=== PATIENT | female | born 1945 | race Caucasian/White ===

== ENCOUNTER 2017-03-06 08:11 | Emergency (ER) | payer MEDICARE, OTHER ==
[~2017-03-06] VITALS: Ht 167.6 cm; Wt 88.0 kg
[2017-03-06 08:16] VITALS: Ht 167.6 cm; Wt 88.0 kg
--- NOTE | 2017-03-06 08:56 | ERD ---
ER Documentation Chief Complaint Date/Time DATE: 03/06/17 TIME: 08:56 Chief Complaint NECK AND SHOULDER PAIN "SHOOTING TO THE HEART" SINCE YESTERDAY HPI Patient is a 71-year-old female who presents with gradual onset, constant, severe bilateral posterior shoulder and neck pain for 1 day. She states that started when she awoke yesterday. She denies any fall or trauma. She denies any weakness or numbness of the arms. She denies any anterior neck pain. She states that the pain radiates to her bilateral ears. She denies hearing loss, tinnitus, vertigo. She denies chest pain, back pain, fever, vomiting. She states that she has been compliant with her medication for diabetes and hypertension. She denies headache, visual disturbance. She denies weakness or numbness of the arms. ROS All systems reviewed and are negative except as per history of present illness. Medications Home Meds Active Scripts Carbamide Peroxide* (Debrox*) 6.5% - 15 Ml Drops, 10 DROP BOTH EARS BID for 3 Days, BOTTLE Prov:TALIA KNOX MD 03/06/17 Cyclobenzaprine Hcl* (Cyclobenzaprine Hcl*) 10 Mg Tablet, 10 MG PO TID, #21 TAB Prov:TALIA KNOX MD 03/06/17 Hydrocodone/Acetaminophen ([place] 10-325 Tablet) 1 Each Tablet, 1 TAB PO Q6H Y for PAIN, #14 TAB Prov:TALIA KNOX MD 03/06/17 Reported Medications Gabapentin* (Gabapentin*) 300 Mg Capsule, 300 MG PO DAILY, #60 CAP 03/06/17 Ibuprofen* (Motrin*) 600 Mg Tab, 600 MG PO Q6H Y for PAIN, TAB 03/06/17 Insulin Glargine* (Lantus*) 100 Unit/Ml Soln, 30 UNIT SC QHS, #1 VIAL 03/06/17 Zolpidem Tartrate* (Zolpidem Tartrate*) 10 Mg Tablet, 10 MG PO QHS Y for INSOMNIA, #30 TAB 03/06/17 Sertraline Hcl* (Zoloft*) 25 Mg Tablet, 25 MG PO DAILY, #30 TAB 03/06/17 Atenolol* (Atenolol*) 25 Mg Tablet, 25 MG PO DAILY, #30 TAB 03/06/17 Dulaglutide (Trulicity) 0.75 Mg/0.5 Ml Pen.injctr, 0.75 MG SQ weekly for on Monday03/06/17 Sitagliptin* (Januvia*) 100 Mg Tablet, 100 MG PO DAILY, #30 TAB 03/06/17 Atorvastatin Calcium* (Atorvastatin Calcium*) 20 Mg Tablet, 20 MG PO QHS, #30 TAB 03/06/17 Amlodipine Besylate* (Norvasc*) 5 Mg Tablet, 5 MG PO DAILY, TAB 03/06/17 Meclizine Hcl* (Meclizine Hcl*) 25 Mg Tablet, 25 MG PO Q8H Y for DIZZINESS, TAB 03/06/17 Glyburide/Metformin HCl (Glucovance 5-500 mg Tablet) 1 Each Tablet, 1 TAB PO BID , TAB 03/06/17 Cholecalciferol* (Vitamin D3*) 1,000 Unit Tablet, 185304 UNIT PO weekly for on , TAB 03/06/17 Gemfibrozil* (Lopid*) 600 Mg Tablet, 600 MG PO BID, TAB 03/06/17 Ezetimibe* (Zetia*) 10 Mg Tablet, 10 MG PO DAILY, TAB 03/06/17 Ferrous Sulfate* (Ferrous Sulfate*) 325 Mg Tabec, 325 MG PO DAILY, TAB 03/06/17 Escitalopram Oxalate* (Escitalopram Oxalate*) 10 Mg Tablet, 10 MG PO DAILY, #30 TAB 03/06/17 Omeprazole* (Omeprazole*) 20 Mg Capsule.dr, 20 MG PO DAILY, #30 CAP 03/06/17 Valsartan* (Diovan*) 160 Mg Tablet, 160 MG PO DAILY, TAB 03/06/17 Aspirin* (Aspirin* EC) 81 Mg Tablet.dr, 81 MG PO DAILY, TAB 03/06/17 Allergies Allergies: Coded Allergies: No Known Allergy (Unverified , 03/06/17) PMhx/Soc Past medical history: Diabetes, hypertension Past surgical history: Kidney stone Social history: Denies tobacco or alcohol History of Surgery: Yes (KIDNEY STONES) Hx Cardiac Disorders: Yes (HTN) Hx Miscellaneous Medical Probl: Yes (DM) Hx Alcohol Use: No Hx Substance Use: No Hx Tobacco Use: No Smoking Status: Never smoker FmHx Family History: No coronary disease, No diabetes Physical Exam Vitals Vital Signs Date Time Temp Pulse Resp B/P Pulse Ox O2 Delivery O2 Flow Rate FiO2 03/06/17 13:23 72 20 140/85 98 Room Air 03/06/17 12:39 86 20 144/91 98 Room Air 03/06/17 08:16 97.5 92 20 189/92 96 Physical Exam Const: Alert, moderate distress Head: Atraumatic, no sinus percussion tenderness. Eyes: Normal Conjunctiva, no pallor, no icterus ENT: Normal External Ears, Nose and Mouth. Moist mucous membranes. Left ear cerumen impaction, moderate cerumen in right external auditory canal. No external auditory canal edema or exudate. No tenderness of the auricle or mastoid. Neck: Diminished range of motion. Tenderness to bilateral cervical paraspinal muscles, trapezius, and deltoids. Pain reproduced by active or passive movement of the neck. No midline tenderness. Resp: Clear to auscultation bilaterally, no wheezes, no rales Cardio: Regular rate and rhythm, no murmurs, 2+ radial pulses bilateral Abd: Soft, non tender, non distended. Skin: No petechiae or rashes Back: No midline or flank tenderness Ext: No cyanosis, or edema Neur: Awake and alert, cranial nerves II through XII intact bilaterally, strength and sensation full in 4 extremities. Psych: Normal Mood and Affect Result Diagram: 03/06/17 1051 Results 24 hrs Laboratory Tests Test 03/06/17 09:06 03/06/17 10:51 Bedside Glucose 147mg/dL Sodium Level 141mmol/L Potassium Level 4.6mmol/L Chloride Level 109mmol/L Carbon Dioxide Level 20mmol/L Anion Gap 17 Blood Urea Nitrogen 22mg/dl Creatinine 0.63mg/dl Glucose Level 174mg/dl Calcium Level 10.2mg/dl Current Medications Medications (Trade) Dose Ordered Sig/[place]azar Route PRN Reason Start Time Stop Time Status Last Admin Dose Admin Cyclobenzaprine HCl (Flexeril) 10 mg ONCE ONCE PO 03/06/17 09:00 03/06/17 09:01 DC 03/06/17 09:11 Acetaminophen/ Hydrocodone Bitart ([place] (10/325)) 1 tab ONCE ONCE PO 03/06/17 09:00 03/06/17 09:01 DC 03/06/17 09:11 Ondansetron HCl (Zofran Tab) 4 mg ONCE ONCE PO 03/06/17 09:00 03/06/17 09:01 DC 03/06/17 09:11 Diazepam (Valium) 5 mg ONCE ONCE IM 03/06/17 10:30 03/06/17 10:31 DC 03/06/17 10:31 Procedures/MDM EKG read by me: Time 0823, rate 90 Rhythm: Normal sinus [place]: Left axis deviation Intervals: Normal ST-T waves: T-wave flattening in multiple leads Ectopy: No Q-waves: No Impression: No evidence of ischemia or arrhythmia MDM: Patient is a 71-year-old female who presents with severe pain to the muscles of her posterior neck and shoulders. The pain is easily reproducible with movements of the head and palpation of the affected muscles. There is no history of trauma. There are no neurological symptoms or deficits. There are no features that are concerning for anginal equivalent. There is no midline tenderness of the spine. The patient was given muscle relaxants and analgesics in the ER and had mild improvement. She was initially hypertensive, but her blood pressure normalized. I will discharge her with prescriptions for muscle relaxants and analgesics, and have advised her to use a heating pad and to follow-up with your PMD in 1-2 days if her symptoms are not improving. Departure Diagnosis: Primary Impression: Muscle spasms of neck Additional Impression: Cerumen impaction Laterality: left Qualified Code: H61.22 - Impacted cerumen of left ear Condition: Stable TALIA KNOX MD Mar 06, 2017 08:56
[2017-03-06] MEDS ORDERED: HYDROCODONE/APAP (10/325) TAB PO ONE (09:00)
[2017-03-06] MEDS ORDERED: CYCLOBENZAPRINE 10 MG TAB PO ONE (09:00)
[2017-03-06] MEDS ORDERED: ONDANSETRON 4 MG TAB PO ONE (09:00)
[2017-03-06] MEDS ORDERED: EZET10TA3 PO (09:59)
[2017-03-06] MEDS ORDERED: ASPI-664 PO (09:59)
[2017-03-06] MEDS ORDERED: OMEP20CA16 PO (09:59)
[2017-03-06] MEDS ORDERED: FER325 PO (09:59)
[2017-03-06] MEDS ORDERED: VALS160T20 PO (09:59)
[2017-03-06] MEDS ORDERED: CHOL100062 PO (09:59)
[2017-03-06] MEDS ORDERED: GEMF600T PO (09:59)
[2017-03-06] MEDS ORDERED: ESCI10TA48 PO (09:59)
[2017-03-06] MEDS ORDERED: ATOR20TA38 PO (10:03)
[2017-03-06] MEDS ORDERED: DULA0.75 SQ (10:03)
[2017-03-06] MEDS ORDERED: GLYB1TAB3 PO (10:03)
[2017-03-06] MEDS ORDERED: AMLO5TAB4 PO (10:03)
[2017-03-06] MEDS ORDERED: MECL-77 PO (10:03)
[2017-03-06] MEDS ORDERED: SITA100T8 PO (10:03)
[2017-03-06] MEDS ORDERED: SERT25TA PO (10:08)
[2017-03-06] MEDS ORDERED: IBUP-1542 PO (10:08)
[2017-03-06] MEDS ORDERED: ZOLP10TA5 PO (10:08)
[2017-03-06] MEDS ORDERED: LANT3I SC (10:08)
[2017-03-06] MEDS ORDERED: ATEN-51 PO (10:08)
[2017-03-06] MEDS ORDERED: GABA300C16 PO (10:08)
[2017-03-06] MEDS ORDERED: DIAZEPAM 5 MG/ML SYG IM ONE (10:30)
[2017-03-06 11:42] LABS: CALCIUM 10.2 mg/dl (8.4-10.2); CREATININE 0.63 mg/dl (0.44-1.00); POTASSIUM 4.6 mmol/L (3.5-5.1)
[2017-03-06] MEDS ORDERED: CYCL-319 PO (12:50)
[2017-03-06] MEDS ORDERED: HYDR-902 PO (12:50)
[2017-03-06] MEDS ORDERED: CARB15DR48 BOTH EARS (12:53)
[2017-03-06 13:23] VITALS: BP 140/85; PULSE 72; RESP 20
== END 2017-03-06 13:26 | disposition home or self-care (01) ==
LOC: E/R 08:11 → EDBD 08:11 → E/R 13:26
DX: M62.838 Other muscle spasm (principal); H61.22 Impacted cerumen, left ear; I10 Essential (primary) hypertension; E11.9 Type 2 diabetes mellitus without complications; Z79.4 Long term (current) use of insulin; Z79.84 Long term (current) use of oral hypoglycemic drugs; Z79.82 Long term (current) use of aspirin
CPT/HCPCS: 80048; 82962; 93005; 96372; 99284; J3360